=== PATIENT | female | born 1980 | race Caucasian/White ===

== ENCOUNTER 2025-02-22 07:55 | Outpatient (AMB) | payer BC, SELFPAY ==
--- OUTSIDE RECORDS SUMMARY | 2025-02-22 08:01 | XMS_ITS | Encounter Summary ---
Author Organization [facility] Address [address] [place] [address] [place] [address] Phone Care Team Providers Care Physician Assistant Primary Care Name Role Phone Sacha Pink MD Unavailable [phone] Arpit Martínez MD Unavailable Joseph King INSEAM LEVELER Unavailable [phone] Asmita Shannon MD Unavailable Sacha Pink MD Primary Care Provider + [phone] Sacha Pink MD Unavailable [phone] Encounter Details Date Type Department Care Team (Late st Contact Info) Description 07/16/2023 Procedure Pass [address] [address] Social History Tobacco Use Types Packs/Day Years Used Date Smoking Tobacco: Every Day Cigarettes 0.5 25 Passive Smoke Exposure: Never Smokeless Tobacco: Never Alcohol Use Standard Drinks/Week Comments Yes 7 (1 standard drink = 0.6 oz pur e alcohol) Child or Family Care Answer Date Record ed Do you have problems with on e of the following making it difficult for you to work, study, or receive health care? No 11/20/2021 Education Answer Date Recorded Are you interested in help w ith more adult education (for example, completing high school, GED, job training, learning the [place] language, technical skills, or developing parenting skills)? No 11/20/2021 Food Answer Date Recorded Within the past 6 months we worried whether our food would run out before we got money to buy more. Never True 022 Within the past 6 months the food we bought just didn't last and we didn't have enough money to get more. Sometimes True 10/25 Residential Stability Answer Date Recor ded What is your housing situation today? I have denise tong 11/20/2021 How many times have you move d in the past 12 months? Zero (I did not move) 11/20/2021 Paying for Meds Answer Date Recorded Do you have trouble paying for medicines? No 11/20/2021 Paying Utility Bills Answer Date Record ed Do you have trouble paying your heating or elect ricity bill? No 11/20/2021 Transportation Answer Date Recorded Has the lack of transportati on kept you from medical appointments or from getting medications? No 11/20/2021 Unemployment Answer Date Recorded Are you currently unemployed or working on a part-time or temporary basis, and looking for work? No 11/20/2021 Digital Access Answer Date Recorded No 10/20/2022 No 10/20/2022 Reliable internet access at home? Not on file 10/20/2022 Device with a working camera? 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 on file Not on file Not on file documented as of this encounter Plan of Treatment Upcoming Encounters Date Type Department Care Team (Late st Contact Info) Description 01/13/2025 Procedure Pass [facility], [facility] [address] [place] [address] 04/05/2025 2:00 PM EST Office Visit [facility] [address] [place] [address] Sacha Pink MD [address] [facility], [address] [place] [address] 09/01/2025 7:30 AM EDT Appointment [facility] [address] [place] [address] Sacha Pink MD 22 [facility], [address] [place] [address] documented as of this encounter Visit Diagnoses Not on filedocumented in this encounter Additional Health Concerns Infection Onset Date Last Indicated Resolved Time CoV-Risk 01/21/2024 01/21/2024 02/01/2024 1:2 2 AM EDT Assessment Noted Time PHQ-2 Depression Total Score: 0 02/26/20 9:00 AM EDT documented as of this encounter Care Teams Physician Assistant Primary Care Relationship Specialty Start Date End Date Sacha Pink MD [address] [place] [address], [address] [place] [address] PCP - General 04/24/17 Sacha Pink MD [address] [place] [address], [address] [place] [address] Historical LMR Provider 03/15/17 Arpit Martínez MD [address] [place] [address], [address] [address] Historical LMR Provider 03/15/17 Joseph King, ELIZA [address] [place] [address], [address] [place] [address] Historical LMR Provider 03/15/17 Asmita Shannon MD [address] [place] [address], [address] [address] [email or web address] Historical LMR Provider 03/15/17 Sacha Pink MD [address] [place] [address], [address] [place] [address] [email or web address] Insurance Assigned Provider 08/30/23 documented as of this encounter Additional Source Comments The information contained in this document represents components of the legal health record. It is not the complete legal health record.[facility]
--- OUTSIDE RECORDS SUMMARY | 2025-02-22 08:01 | XMS_ITS | Continuity of Care Document ---
Author Organization [facility] Address [address] [place] [id number] Insurance Providers Payer Plan Claims Address Claims Phone Policy Number Group Number Relation Employer Guarantor Name Guarantor Guarantor Address Guarantor Phone [facility] [address], [place] [address] tel:[phone] [id number] Self Wen Sharma [address] [place] [address] [id number] Problems Condition ICD9 code ICD10 code SNOMED code Start Date End Date S tatus Encounter for screening for other metabolic disorders Z13.228 Results No Results Allergies, adverse reactions, alerts No known allergies and adverse reactions Medications No administered medications reported Vital Signs No vital signs reported Social History No smoking Hx information available
--- OUTSIDE RECORDS SUMMARY | 2025-02-22 08:02 | XMS_ITS | Clinical Summary ---
Author Organization [facility] Address [address] [place] [address] Phone Care Team Providers Care Monomer Purification Operator Name Role Phone Sacha Pink MD Unavailable [phone] Arpit Martínez MD Unavailable Joseph King SUPERVISOR CYTOLOGY Unavailable Asmita Shannon MD Unavailable Sacha Pink MD Primary Care Provider + [phone] Sacha Pink MD Unavailable [phone] Allergies Active Allergy Reactions Criticality Noted Date Comments Macadamia Nut Hives,Itching Medium 08/15/2017 Oxycodone-Acetaminophen Nausea and/or Vomiting Low 01/21/2017 Medications b complex vitamins tablet Take 1 tablet by mouth daily. Active topiramate (TOPAMAX) 25 MG tablet Take 1 tablet (25 mg total) by mouth daily. 01/26/2019 Active magnesium 250 mg Tab Take 250 mg by mouth daily. Active atorvastatin (LIPITOR) 10 MG tablet Take 1 tablet (10 mg total) by mouth daily. 90 tablet 3 02/25/2023 Active escitalopram oxalate (LEXAPRO) 10 MG tabletIndicatio ns:Generalized anxiety disorder TAKE ONE AND ONE-HALF TABLETS BY MOUTH DAILY 135 tablet 1 02/12/2024 Active metFORMIN (GLUCOPHAGE) 500 MG tablet TAKE ONE TABLET BY MOUTH TWICE A DAY WITH MEALS 180 tablet 11/19/2024 Active Active Problems Problem Noted Date Diagnosed Date Perimenopausal symptoms 08/18/2024 Overview (08/18/2024): With history of PCOS also Assessment & Plan (08/18/2024 5:52 PM EDT): Discussed various treatment options that can help with both perimenopause as well as PCOS, opts for progestin only oral contraceptive dosing Mass of upper inner quadrant of left breast 06/27 Assessment & Plan (07/16/2023 4:06 PM EST): On questioning, she works at [employer] and thinks that a box might have fallen off a shelf. Appearance is consistent with trauma but I did recommend diagnostic imaging. She understands the wait times locally. She will call [facility] to see when diagnostic imaging can be done. If there is a long wait we could coordinate through [facility] or she could keep her screening imaging and return to see me for breast exam in about 3 weeks to see if the bruise and lump have resolved. She will consider these options and notify me of her preference. We discussed symptoms that would warrant re-evaluation. Abnormal uterine bleeding 06/03/2023 Overview (06/03/2023): Risk factors for EIN, long history of heavy. And occasionally bleeding twice a month Assessment & Plan (06/03/2023 9:49 AM EST): Recommend return for endometrial biopsy due to risk factors, she will pretreat with some ibuprofen. She does not want to consider hormonal IUD, she will consider an oral progestin, which I explained will also treat PCOS that she has had for many years. Other hyperlipidemia 02/25/2023 Menopausal symptoms 02/25/2023 Type 2 diabetes mellitus wit hout complication, without long-term current use of insulin 09/15/2022 Class 2 severe obesity due t o excess calories with serious comorbidity in adult 09/15/2022 Magnetic resonance imaging of brain abnormal Abnormally low high density lipoprotein (HDL) cholesterol with hypertriglyceridemia 11/20/2017 Atypical migraine 11/20/2017 Benign paroxysmal positional vertigo of left ear 11/20/2017 Cervical radiculitis 11/20/2017 Cervicogenic headache 11/20/2017 Dysmenorrhea 11/20/2017 Polycystic ovarian syndrome 11/20/2017 Assessment & Plan (08/18/2024 5:52 PM EDT): Has hair thinning on top of head as well as significant facial hair requires shaving, irregular menses, currently on metformin Now with some perimenopausal symptoms as well, treatment options for both discussed, she would like to try progestin only oral contraceptives; testosterone level ordered Tobacco use 11/20/2017 Generalized anxiety disorder 08/21/2017 Menorrhagia with regular cycle 08/21/2017 Hirsutism 08/19/2017 Overview (11/20/2017): With PCOS dx Assessment & Plan (08/19/2017 12:14 PM EDT): Discussed role of OCP in decreasing T and increasing SHBG, declined Discussed role of spironolactone and K issues, rx sent; check T level Continue exercise , healthy eating Immunizations Immunization Administration Dates Next Due Rho (D) Immune Globulin 11/25/2016,06/29/2014 Tdap 11/20/2021,07/22/2011 Family History Medical History Relation Comments CV disease Father PE Diabetes mellitus Father Hypertension Father Diabetes mellitus Maternal Grandmother Cancer Mother Multiple myeloma Mother Breast cancer Paternal Cousin CV disease Paternal Grandfather Alzheimer's disease Paternal Grandmother Relation Status Comments Father (Age 68) Maternal Grandfather Maternal Grandmother Mother (Age 56) Paternal Cousin Alive Paternal Grandfather Paternal Grandmother Social History Tobacco Use Types Packs/Day Years Used Date Smoking Tobacco: Every Day Cigarettes 0.5 25 Passive Smoke Exposure: Never Smokeless Tobacco: Never Tobacco Cessation:Ready to Q uit: Not Asked; Counseling Given: Not Answered Alcohol Use Standard Drinks/Week Comments Yes 7 (1 standard drink = 0.6 oz pur e alcohol) once a week Child or Family Care Answer Date Record ed Do you have problems with on e of the following making it difficult for you to work, study, or receive health care? No 11/20/2021 Education Answer Date Recorded Are you interested in more education? Not on jackeline e 12/04/2023 Are you concerned about learning? Not on file 12/04/2023 No 12/04/2023 No 12/04/2023 Food Answer Date Recorded Within the past [...] your housing situation today? 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 file Not on file Not on file Last Filed Vital Signs Vital Sign Reading Time Taken Comments Blood Pressure 104/60 08/31/2024 11:19 AM EDT Pulse 94 08/31/2024 11:19 AM EDT Temperature 36.7 C (98 F) 08/31/2024 11:19 AM EDT Respiratory Rate 16 01/21/2024 6:14 PM EDT Oxygen Saturation 97% 08/31/2024 11:19 AM EDT Inhaled Oxygen Concentration - - Weight 104 kg (229 lb 3.2 oz) 08/31/2024 11:19 A M EDT Height 170 cm (5' 6.93 ) 08/31/2024 11:19 AM EDT Body Mass Index 35.97 08/31/2024 11:19 AM EDT Plan of Treatment Upcoming Encounters Date Type Department Care Team (Late st Contact Info) Description 01/13/2025 Procedure [address] [address] 04/05/2025 2:00 PM EST Office Visit [facility] [address] [place] [address] Sacha Pink MD [address] [place] [address], [address] [place] [address] [email or web address] 09/01/2025 7:30 AM EDT Appointment [address] [address] Sacha Pink MD [address] [place] [address], [address] [place] [address] Health Maintenance Due Date Last Done Comments PNEUMOCOCCAL VACCINES (0-49 years) (1 of 2 - PCV) 1997 DIABETIC EYE EXAM 11/20/2021 URINE MICROALBUMIN/CREATININE RATIO 11/20/2021 COLOGUARD 2023 COLONOSCOPY 2023 COLORECTAL CANCER SCREENING 2023 FIT TEST 2023 FOBT 2023 SIGMOIDOSCOPY 2023 VIRTUAL COLONOSCOPY 2023 LIPID PANEL 01/29/2024 01/28/2023, 090 09/2022, 11/20/2021, Additional history exists DEPRESSION SCREENING 02/26/2024 02/25/2023 HEMOGLOBIN A1C 07/27/2024 01/28/2024, 09/0 09/2022, 01/28/2023, Additional history exists INFLUENZA VACCINE (#1) 2024 COVID-19 VACCINE ( season) 2025 BLOOD PRESSURE 03/02/2025 08/31/2024 CREATININE LEVEL 07/29/2025 07/29/2024, 08/2023, 01/28/2023, Additional history exists SMOKING Hx and SMOKELESS TOBACCO SCREENING 08/25/2025 08/25/2024 MAMMOGRAM 02/23/2026 02/24/2024, 08/28/2021 PAP SMEAR 06/03/2028 06/03/2023, 07/25, 08/19/2017 Adult Td,Tdap Booster 11/21/2031 11/20/2021, 012 HIV ONE-TIME SCREENING (18-65 YEARS) Completed 01/26/2019 HEPATITIS C SCREENING Completed 08/01/2020, 021 HEPATITIS A VACCINES Aged Out No long er eligible based on patient's age to complete this topic HIB VACCINES Aged Out No longer eligi ble based on patient's age to complete this topic MENINGOCOCCAL VACCINES (ACWY) Aged Out No longer eligible based on patient's age to complete this topic MENINGOCOCCAL VACCINES (B) Aged Out N o longer eligible based on patient's age to complete this topic Medical Devices Not on file Procedures Procedure Name Priority Date/Time Associated Diagnosis Comments COMPREHENSIVE METABOLIC PANEL Routine 07/29/2024 11:16 AM EST Lower abdominal pain BI MAMMOGRAM DIAGNOSTIC WITH TOMOSYNTHESIS WITH CAD (BILATERAL) Routine 02/24/2024 12:37 PM EDT Mass of upper inner quadrant of left breast HEMOGLOBIN A1C Routine 01/28/2024 12:25 PM EDT Type 2 diabetes mellitus without complication, without long-term current use of insulin PAP TEST Routine 06/03/2023 12:00 AM EST LIPID PANEL Routine 01/28/2023 9:09 AM EDT Type 2 diabetes mellitus without complication, without long-term current use of insulin HEPATITIS C ANTIBODY, QUALITATIVE Routine 08/01/2020 11:11 AM EST Class 2 obesity due to excess calories without serious comorbidity with body mass index (BMI) of 36.0 to 36.9 in adult from Last 3 Months or Most Recently Relevant to Health Maintenance Results * (ABNORMAL) Comprehensive metabolic panel (07/29/2024 11:16 AM EST) SODIUM 137 133 - 146 mmol/L [facility] POTASSIUM 4.2 3.3 - 5.1 mmol/L [facility] CHLORIDE 102 96 - 108 mmol/L [facility] CO2 23 21 - 35 mmol/L [facility] BUN 10 6 - 19 mg/dL [facility] CREATININE 0.70 0.5 - 1.5 mg/dL [facility] GLUCOSE 112(H) 70 - 99 mg/dL [facility] ALBUMIN 4.2 3.9 - 4.8 g/dL [facility] TOTAL PROTEIN 7.4 6.5 - 8.0 g/dL [facility] CALCIUM 9.5 8.4 - 10.3 mg/dL [facility] ALKALINE PHOSPHATASE 89 39 - 117 U/L [facility] TOTAL BILIRUBIN <0.2 0.0 - 1.2 mg/dL [facility] AST 19 0 - 37 U/L [facility] ALT 7 0 - 40 U/L [facility] GLOBULIN 3.2 1 - 4.8 g/dL [facility] EGFR 108 >59 mL/min/1.7 3m2 [facility] Comment:Estimated glomerular filtration rate calculated using the CKD-EPI refit equation. ANION GAP 16 10 - 20 mmol/L [facility] Blood 07/29/2024 11:1 6 AM EST 07/29/2024 11:25 AM EST us Shantal Ortiz SUPERVISOR CYTOLOGY LAB BLOOD ORDERABLES Sailaja mayfield Result [facility] [address] [place] [address] * BI MAMMOGRAM DIAGNOSTIC WITH TOMOSYNTHESIS WITH CAD (BILATERAL) (02/24/2024 12:37 PM EDT) Anatomical Region Laterality Modality Breast Left, Breast Right, Breast Bilateral Bila teral Mammography 02/24/2024 12:4 2 PM EDT Impressions 02/24/2024 12:52 PM EDT 1. Benign findings on the right. No mammographic evidence of malignancy in the right breast. 2. No mammographic evidence of malignancy in the left breast. BI-RADS 2 BENIGN Results and recommendations were communicated to the patient at time of examination. Narrative 02/24/2024 12:52 PM EDT BI MAMMOGRAM DIAGNOSTIC WITH TOMOSYNTHESIS WITH CAD (BILATERAL) Additional patient information: Follow-up of prior right breast probably benign findings. COMPARISON: Comparison is made with relevant prior imaging. Breast composition: There are scattered areas of fibroglandular density. FINDINGS: Right Mammogram: Previously seen asymmetry in the lateral/central right breast is stable. There are no new or suspicious findings in the right breast. Left Mammogram: No abnormal masses, suspicious calcifications, or other significant findings are identified mammographically in the left breast. There is no change since previous examination. Procedure Note Maya Scott MD - 02/24/2024 BI MAMMOGRAM DIAGNOSTIC WITH TOMOSYNTHESIS WITH CAD (BILATERAL) Additional patient information: Follow-up of prior right breast probablybenign findings. COMPARISON: Comparison is made with relevant prior imaging. Breast composition: There are scattered areas of fibroglandular density. FINDINGS: Right Mammogram: Previously seen asymmetry in the lateral/central right breast is stable.There are no new or suspicious findings in the right breast. Left Mammogram: No abnormal masses, suspicious calcifications, or other significantfindings are identified mammographically in the left breast. There is nochange since previous examination. IMPRESSION: 1. Benign findings on the right. No mammographic evidence of malignancyin the right breast. 2. No mammographic evidence of malignancy in the left breast. BI-RADS 2 BENIGN Results and recommendations were communicated to the patient at time ofexamination. us Hong Girard SUPERVISOR CYTOLOGY IMG MG EXAMS Final Res ult * (ABNORMAL) Hemoglobin A1c (01/28/2024 12:25 PM EDT) HEMOGLOBIN A1C 6.3(H) 4.3 - 5.8 % [facility] Blood 01/28/2024 12:2 5 PM EDT 01/28/2024 12:36 PM EDT us Sacha Pink MD LAB BLOOD ORDERABLES Final Result [address] [address] * Pap Test (06/03/2023 12:00 AM EST) 06/03/2023 06/04/2023 9:5 9 AM EST Narrative SEE NARRATIVE - 06/09/2023 11:17 AM EST [address] [address] Traffic Signal Mechanic: Wen Gilmore MD LAUNDERER HAND Cytology Report FINAL DIAGNOSIS A. PAP SMEAR (SUREPATH) CE: SPECIMEN ADEQUACY: Satisfactory for evaluation; transformation zone present. INTERPRETATION: NEGATIVE FOR INTRAEPITHELIAL LESION OR MALIGNANCY. Coccobacilli consistent with shift in russell Electronically Signed Out By: SCOTT Swartz(ASCP) The Pap test is a screening test primarily for squamous cancers and precursors and has associated false-negative and false-positive results. New technologies such as liquid-based preparations may decrease but will not eliminate all false-negative results. Regular sampling and follow-up of unexplained clinical signs and symptoms are recommended to minimize false negative results. PROCEDURES/ADDENDA HPV Testing (Requested) Ordered Date: 06/04/2023 A. PAP SMEAR (SUREPATH) CE: Human Papilloma Virus Test NEGATIVE for high-risk Human Papilloma Virus types 16, 18, 45 and the Other high risk probe set (Includes 31, 33, 35, 39, 51, 52, 56, 58, 59, 66, 68) Note: Testing performed by [facility] HR-HPV analysis. Clinical correlation is advised. This HPV test was performed at [facility], [address] [place] [address]. This test has been FDA approved for SurePath cervical cytology specimens. The accuracy and precision of this test for all other specimen sources has been verified in the Cytopathology Laboratory of the [facility] and has not been cleared or approved by the U.S. Food and Drug Administration. Clinical correlation is advised. CLINICAL HISTORY Date of Last Menstrual Period: 05-06-2023 Other Clinical Conditions: Screening Pap SPECIMEN SOURCE A: PAP SMEAR (SUREPATH) CE Patient Name: WEN SHARMA : 1980 (Age: 43) Sex: F Institution: [facility] Location: [facility] Date of Collection: 06/03/2023 Date of Reported: 06/09/2023 11:17 Results to: Asmita Shannon MD Asmita Shannon MD CYTOLOGY ORDERABLES Final Result SEE NARRATIVE * (ABNORMAL) Lipid panel (01/28/2023 9:09 AM EDT) HDL 49 mg/dL [facility] Comment: Interpretation <40 mg/dL: Low HDL cholesterol (major risk factor for CHD) Greater than or equal to 60 mg/dL: High HDL cholesterol ( negative risk factor for CHD) HDL - cholesterol is affected by a number of factors, e.g. smoking, excerise, hormones, sex and age. CHOLESTEROL 254(H) 0 - 240 mg/dL [facility] TRIGLYCERIDES 236(H) 30 - 160 mg/dL [facility] LDL 158(H) 50 - 129 mg/dL [facility] Comment: LDL levels in terms of risk for coronary heart disease: <100 mg/dL: Optimal 100-129 mg/dL: Near or above optimal 130-159 mg/dL: Borderline high 160-189 mg/dL: High >190 mg/dL: Very High CARDIAC RISK RATIO 5.2(H) 3.3 - 4.4 C [facility] Blood 01/28/2023 9:09 AM EDT 01/28/2023 9:15 AM EDT us Sacha Pink MD LAB BLOOD ORDERABLES Final Result [address] [address] * Hepatitis C antibody, qualitative (08/01/2020 11:11 AM EST) HCV NON-REACTIV E NON-REACTI VE [facility] Blood 08/01/2020 11:1 1 AM EST 08/01/2020 11:22 AM EST us Sacha Pink MD LAB BLOOD ORDERABLES Final Result Performing Organization Address [facility] Co de Phone Number [address] [address] from Last 3 Months or Most Recently Relevant to Health Maintenance Insurance OUT [facility] [place] [address] [place] [address] OUT [facility] PPO [employer] OUT OF STATE PPO BL[employer] [place] OUT OF STATE PPO [place] [place] OUT OF STATE PPO OUT OF [facility] PPO OUT [facility] PPO OUT [facility] P[facility] * Guarantor: Wen Sharma Account Type Relation to Patient Date of Phone Billing Address Personal/Family Self [address] [place] [address] [facility] OUT STATE PPO Care Teams Monomer Purification Operator Relationship Specialty Start Date End Date Sacha Pink MD [address] [place] [address], [address] [place] [address] PCP - General 04/24/17 Sacha Pink MD [address] [place] [address], [address] [place] [address] Historical LMR Provider 03/15/17 Arpit Martínez MD [address] [place] [address], [address] [place] [address] Historical LMR Provider 03/15/17 Joseph King CNP [address] [place] [address], [address] [place] [address] Historical LMR Provider 03/15/17 Asmita Shannon MD [address] [place] [address], [address] [place] [address] Historical LMR Provider 03/15/17 Sacha Pink MD [address] [place] [address], [address] [place] [address] [email or web address] Insurance Assigned Provider 08/30/23 Additional Source Comments The information contained in this document represents components of the legal health record. It is not the complete legal health record.[facility]
--- OUTSIDE RECORDS SUMMARY | 2025-02-22 08:02 | XMS_ITS | Encounter Summary ---
Author Organization [facility] Address [address] [place] [address] Phone Care Team Providers Care Whipper Beater Name Role Phone Sacha Pink MD Unavailable Arpit Martínez MD Unavailable Rohit Lay LINE OUT MAN Unavailable [phone] Joseph King GOLF COURSE LABORER Unavailable [phone] Jovana Enriquez LINE OUT MAN Unavailable Roxanna Santos MD Unavailable [phone] Asmita Shannon MD Unavailable Felicita Sanchez DO Unavailable Will Rizzo MD Unavailable [phone] Lambert Mackenzie MD Unavailable [phone] Tc Laureano MD Unavailable [phone] Staci Haynes RDCS Unavailable [email or web address] My Lerner MD Unavailable [phone] Sacha Pink MD Primary Care Provider [phone] Sacha Pink MD Unavailable [phone] Encounter Details Date Type Department Care Team (Late st Contact Info) Description 03/27/2021 Procedure Pass [address] [address] Social History Tobacco Use Types Packs/Day Years Used Date Smoking Tobacco: Every Day Cigarettes 0.5 25 Smokeless Tobacco: Never Alcohol Use Standard Drinks/Week Comments Yes 3 (1 standard drink = 0.6 oz pur e alcohol) Comments No Sex and Gender Information Value Date Recorded Sex Assigned at Female 09/26/2021 5:38 PM EDT Legal Sex Female 9:24 PM EDT Gender Identity Female 09/26/2021 5:38 PM EDT Sexual Orientation Straight 09/26/2021 5: 38 PM EDT 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 Not on file Not on file documented as of this encounter Plan of Treatment Upcoming Encounters Date Type Department Care Team (Late st Contact Info) Description 01/13/2025 Procedure Pass [address] [address] 04/05/2025 2:00 PM EST Office Visit [facility] Family Medicine [address] [place] [address] Sacha Pink MD [address] [place] [address], [address] [address] [email or web address] 09/01/2025 7:30 AM EDT Appointment [address] [address] Sacha Pink MD [address] [place] [address], [address] [address] [email or web address] documented as of this encounter Visit Diagnoses Not on filedocumented in this encounter Additional Health Concerns Infection Onset Date Last Indicated Resolved Time CoV-Exposed Comment:Recent close contact documented in the COVID-19 Amb Triage Form 05/21/2021 05/22/2021 06/05/2021 1:[address] CoV-Exposed Comment:Recent close contact documented in the COVID-19 Amb Triage Form 09/27/2021 09/27/2021 10/08/2021 1:23 AM E DT CoV-Risk 01/21/2024 01/21/2024 02/01/2024 1:22 AM EDT Assessment Noted Time PHQ-2 Depression Total Score: 0 01/27/20 19 9:00 AM EDT documented as of this encounter Care Teams Whipper Beater Relationship Specialty Start Date End Date Sacha Pink MD 22 [facility], [address] [place] [address] PCP - General 04/24/17 Sacha Pnik MD [address] [place] [address], [address] [place] [address] Historical LMR Provider 03/15/17 Arpit Martínez MD [address] [place] [address], [address] [address] Historical LMR Provider 03/15/17 Rohit Lay, MARIA VICTORIA [address] [place] [address] 2_[place] [address] [email or web address] Historical LMR Provider 03/15/17 06/02/21 Joseph King, ELIZA [address] [place] [address], [address] [place] [address] Historical LMR Provider 03/15/17 Jovana Enriquez LINE OUT MAN [address] [place] [address] Historical LMR Provider 03/15/17 2 Roxanna Santos MD 15 [facility], 2nd [place] [address] Historical LMR Provider 03/15/17 Asmita Shannon MD [address] [place] [address], [address] [address] Historical LMR Provider 03/15/17 Felicita Sanchez DO [address] [place] [address] Historical LMR Provider 03/15/17 2 Will Rizzo MD [address] [place] [address], [address] [place] [address] Historical LMR Provider 03/15/17 06/02/21 Lambert Mackenzie MD [address] [place] [address], [address] [place] [address] Historical LMR Provider 03/15/17 2 Tc Laureano MD [address] [place] [address], [address] [address] Historical LMR Provider 03/15/17 06/02/21 Staci Haynes, CS Historical LMR Provider 03/15/17 06/02/21 My Lerner MD [address] [place] [address], [address] [address] Historical LMR Provider 03/15/17 06/02/21 Sacha Pink MD [address] [place] [address], [address] [place] [address] [email or web address] Insurance Assigned Provider 08/30/23 documented as of this encounter Additional Source Comments The information contained in this document represents components of the legal health record. It is not the complete legal health record.[facility]
--- OUTSIDE RECORDS SUMMARY | 2025-02-22 08:02 | XMS_ITS | Encounter Summary ---
Author Organization [facility] Address [address] [place] [address] Phone Care Team Providers Care Balloon Artist Name Role Phone Sacha Pink MD Unavailable [phone] Arpit Martínez MD Unavailable Joseph King ORDER ENTRY REPRESENTATIVE Unavailable [phone] Asmita Shannon MD Unavailable Sacha Pink MD Primary Care Provider + [phone] Sacha Pink MD Unavailable [phone] Encounter Details Date Type Department Care Team (Late st Contact Info) Description 07/29/2024 Procedure Pass [facility], Ct Scan - [address] [address] Social History Tobacco Use Types Packs/Day Years [...] 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, [address] [place] [address] 09/01/2025 7:30 AM EDT Appointment [facility] 30 [place] [address] Sacha Pink MD 22 [facility], [address] [place] [address] documented as of this encounter Visit Diagnoses Not on filedocumented in this encounter Additional Health Concerns Assessment Noted Time PHQ-2 Depression Total Score: 0 02/26/20 23 9:00 AM EDT documented as of this encounter Care Teams Balloon Artist Relationship Specialty Start Date End Date Sacha Pink MD [address] [place] [address], [address] [place] [address] PCP - General 04/24/17 Sacha Pink MD [address] [place] [address], [address] [place] [address] Historical LMR Provider 03/15/17 Arpit Martínez MD [address] [place] [address], [address] [address] Historical LMR Provider 03/15/17 Joseph King CNP [address] [place] [address], [address] [place] [address] Historical LMR Provider 03/15/17 Asmita Shannon MD [address] [place] [address], [address] [place] [address] Historical LMR Provider 03/15/17 Sacha Pink MD [address] [place] [address], [address] [place] [address] [email or web address] Insurance Assigned Provider 08/30/23 documented as of this encounter Additional Source Comments The information contained in this document represents components of the legal health record. It is not the complete legal health record.[facility]
--- OUTSIDE RECORDS SUMMARY | 2025-02-22 08:02 | XMS_ITS | Encounter Summary ---
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 on file Not on file documented as of this encounter Plan of Treatment Upcoming Encounters Date Type Department Care Team (Late st Contact Info) Description 01/13/2025 Procedure Pass [facility] 30 [place] [address] 04/05/2025 2:00 PM EST Office Visit [facility] Medicine 22 [place] [address] Sacha Pink MD [address] [place] [address], [address] [place] [address] 09/01/2025 7:30 AM EDT Appointment [address] [address] Sacha Pink MD [address] [place] [address], [address] [place] [address] documented as of this encounter Visit Diagnoses [...] documented as of this encounter Care Teams Perch Mender Relationship Specialty Start Date End Date Sacha Pink MD [address] [place] [address], [address] [place] [address] PCP - General 04/24/17 Sacha Pink MD [address] [place] [address], [address] [place] [address] Historical LMR Provider 03/15/17 Arpit Martínez MD [address] [place] [address], [address] [place] [address] Historical LMR Provider 03/15/17 Joseph King CNP [address] [place] [address], [address] [place] [address] Historical LMR Provider 03/15/17 Asmita Shannon MD [address] [place] [address], [address] [address] Historical LMR Provider 03/15/17 Sacha Pink MD [address] [place] [address], [address] [place] [address] [email or web address] Insurance Assigned Provider 08/30/23 documented as of this encounter Additional Source Comments The information contained in this document represents components of the legal health record. It is not the complete legal health record.[facility]
--- OUTSIDE RECORDS SUMMARY | 2025-02-22 08:02 | XMS_ITS | Encounter Summary ---
Author Organization [facility] Address [address] [place] [address] Phone Care Team Providers Care Eyeglass Lens Cutter Name Role Phone Sacha Pink MD Unavailable [phone] Arpit Martínez MD Unavailable Joseph King BUSINESS INTELLIGENCE ETL DEVELOPER Unavailable [phone] Asmita Shannon MD Unavailable Sacha Pink MD Primary Care Provider + [phone] Sacha Pink MD Unavailable [phone] Encounter Details Date Type Department Care Team (Late st Contact Info) Description 08/04/2024 Procedure Pass [facility], Ct Scan - [address] [address] Social History Tobacco Use Types Packs/Day Years [...] 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 file Not on file documented as of this encounter Plan of Treatment Upcoming Encounters Date Type Department Care Team (Late st Contact Info) Description 01/13/2025 Procedure Pass [facility], [facility] [address] [place] [address] 04/05/2025 2:00 PM EST Office Visit [facility] Medical [facility] Family Medicine [address] [place] [address] Sacha Pink MD 22 [facility], [address] [place] [address] 09/01/2025 7:30 AM EDT Appointment [facility] 30 [place] [address] Sacha Pink MD 22 [facility], [address] [place] [address] documented as of this encounter Visit Diagnoses Not on filedocumented in this encounter Additional Health Concerns Assessment Noted Time PHQ-2 Depression Total Score: 0 02/26/20 23 9:00 AM EDT documented as of this encounter Care Teams Eyeglass Lens Cutter Relationship Specialty Start Date End Date Sacha Pink MD [address] [place] [address], [address] [place] [address] PCP - General 04/24/17 Sacha Pink MD [address] [place] [address], [address] [place] [address] Historical LMR Provider 03/15/17 Arpit Martínez MD [address] [place] [address], [address] [address] Historical LMR Provider 03/15/17 Joseph King CNP [address] [place] [address], [address] [place] [address] Historical LMR Provider 03/15/17 Asmita Shannon MD [address] [place] [address], [address] [place] [address] Historical LMR Provider 03/15/17 Sacha Pink MD [address] [place] [address], [address] [place] [address] Insurance Assigned Provider 08/30/23 documented as of this encounter Additional Source Comments The information contained in this document represents components of the legal health record. It is not the complete legal health record.[facility]
--- OUTSIDE RECORDS SUMMARY | 2025-02-22 08:02 | XMS_ITS | Encounter Summary ---
Author Organization [facility] Address [address] [place] [address] [place] [address] Phone Care Team Providers Care Plastic Tool Maker Name Role Phone Sacha Pink MD Unavailable [phone] Arpit Martínez MD Unavailable Joseph King MORTUARY OPERATIONS MANAGER Unavailable [phone] Asmita Shannon MD Unavailable Sacha Pink MD Primary Care Provider + [phone] Sacha Pink MD Unavailable [phone] Encounter Details Date Type Department Care Team (Late st Contact Info) Description 04/23/2022 Procedure Pass [address] [address] Social History Tobacco Use Types Packs/Day Years [...] high school, GED, job training, learning the Mexican language, technical skills, or developing parenting skills)? [...] basis, and looking for work? 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 Not on file Not on file documented as of this encounter Plan of Treatment Upcoming Encounters Date Type Department Care Team (Late st Contact Info) Description 01/13/2025 Procedure Pass [address] [address] 04/05/2025 2:00 PM EST Office Visit [facility] [address] [place] [address] [place] [address] Sacha Pink MD [address] [place] [address], [address] [place] [address] 09/01/2025 7:30 AM EDT Appointment [address] [address] Sacha Pink MD [address] [place] [address], [address] [place] [address] documented as of this encounter Visit Diagnoses Not on filedocumented in this encounter Additional Health Concerns Infection Onset Date Last Indicated Resolved Time CoV-Risk 01/21/2024 01/21/2024 02/01/2024 1:22 AM EDT Assessment Noted Time PHQ-2 Depression Total Score: 2 11/21/19 9:25 AM EDT documented as of this encounter Care Teams Plastic Tool Maker Relationship Specialty Start Date End Date Sacha Pink MD [address] [place] [address], [address] [address] PCP - General 04/24/17 Sacha Pink MD [address] [place] [address], [address] [address] [email or web address] Historical LMR Provider 03/15/17 Arpit Martínez MD [address] [place] [address] [email or web address] Historical LMR Provider 03/15/17 Joseph King CNP [address] [place] [address], [address] [address] [email or web address] Historical LMR Provider 03/15/17 Asmita Shannon MD [address] [place] [address] Historical LMR Provider 03/15/17 Sacha Pink MD [address] [place] [address], [address] [address] [email or web address] Insurance Assigned Provider 08/30/23 documented as of this encounter Additional Source Comments The information contained in this document represents components of the legal health record. It is not the complete legal health record.[facility]
--- OUTSIDE RECORDS SUMMARY | 2025-02-22 08:02 | XMS_ITS | Encounter Summary ---
Author Organization [facility] Address [address] [place] [address] Phone Care Team Providers Care Dealer Relationship Manager Name Role Phone Sacha Pink MD Unavailable Arpit Martínez MD Unavailable Rohit Lay GASTROENTEROLOGIST Unavailable [phone] Joseph King SEED LABORATORY ASSISTANT Unavailable [phone] Jovana Enriquez GASTROENTEROLOGIST Unavailable Roxanna Santos MD Unavailable [phone] Asmita Shannon MD Unavailable Felicita Sanchez DO Unavailable Will Rizzo MD Unavailable [phone] Lambert Mackenzie MD Unavailable [phone] Tc Laureano MD Unavailable [phone] Staci Hay[address] RDCS Unavailable [email or web address] My Lerner MD Unavailable [phone] Sacha Pink MD Primary Care Provider [phone] Sacha Pink MD Unavailable [phone] Encounter Details Date Type Department Care Team (Late st Contact Info) Description 08/01/2020 Procedure Pass [facility] [address] [place] [address] Social History Tobacco Use Types Packs/Day Years Used Date Smoking Tobacco: Every Day Cigarettes 0.5 25 Smokeless Tobacco: Never Alcohol Use Standard Drinks/Week Comments Yes 2 (1 standard drink = 0.6 oz pur e alcohol) monthly Comments No Sex and Gender Information Value Date Recorded Sex Assigned at Female 09/26/2021 5:38 PM EDT Legal Sex Female 9:24 PM EDT Gender Identity Female 09/26/2021 5:38 PM EDT Sexual Orientation Straight 09/26/2021 5: 38 PM EDT 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 Not on file Not on file documented as of this encounter Plan of Treatment Upcoming Encounters Date Type Department Care Team (Late st Contact Info) Description 01/13/2025 Procedure Pass [address] [address] 04/05/2025 2:00 PM EST Office Visit [facility] Medicine [address] [place] [address] Sacha Pink MD [address] [place] [address], [address] [address] .[employer] 09/01/2025 7:30 AM EDT Appointment [address] [address] Sacha Pink MD [address] [place] [address], [address] [address] [email or web address] documented as of this encounter Visit Diagnoses Not on filedocumented in this encounter Additional Health Concerns Infection Onset Date Last Indicated Resolved Time CoV-Risk 02/27/2021 02/27/2021 03/09/2021 1:24 AM EDT CoV-Exposed Comment:Recent close contact documented in the COVID-19 Amb Triage Form 05/21/2021 05/22/2021 06/05/2021 1:[address] CoV-Exposed Comment:Recent close contact documented in the COVID-19 Amb Triage Form 09/27/2021 09/27/202110/0810/08/2021 1:23 AM E DT CoV-Risk 01/21/2024 01/21/2024 02/01/2024 1:22 AM EDT Assessment Noted Time PHQ-2 Depression Total Score: 0 01/27/20 19 9:00 AM EDT documented as of this encounter Care Teams Dealer Relationship Manager Relationship Specialty Start Date End Date Sacha Pink MD [address] [place] [address], [address] [place] [address] PCP - General 04/24/17 Sacha Pink MD [address] [place] [address], [address] [place] [address] Historical LMR Provider 03/15/17 Arpit Martínez MD [address] [place] [address], [address] [place] [address] Historical LMR Provider 03/15/17 Rohit Lay, GASTROENTEROLOGIST [address] [place] [address] 2_[place] [address] [email or web address] Historical LMR Provider 03/15/17 06/02/21 Joseph King, SEED LABORATORY ASSISTANT [address] [place] [address], [address] [place] [address] Historical LMR Provider 03/15/17 Jovana Enriquez GASTROENTEROLOGIST [address] [place] [phone] Historical LMR Provider 03/15/17 2 Roxanna Santos MD 15 [facility], 2nd [place] [address] Historical LMR Provider 03/15/17 Asmita Shannon MD [address] [place] [address], [address] [address] Historical LMR Provider 03/15/17 ConniewasolaFelicita DO [address] [place] [address] Historical LMR Provider 03/15/17 2 Will Rizzo MD [address] [place] [address], [address] [address] Historical LMR Provider 03/15/17 06/02/21 Lambert Mackenzie MD [address] [place] [address], [address] [address] Historical LMR Provider 03/15/17 2 Tc Laureano MD [address] [place] [address], [address] [address] Historical LMR Provider 03/15/17 06/02/21 Staci Haynes, ESEQUIEL Historical LMR Provider 03/15/17 06/02/21 My Lerner MD [address] [place] [address], [address] [address] [email or web address] Historical LMR Provider 03/15/17 06/02/21 Sacha Pink MD [address] [place] [address], [address] [place] [address] [email or web address] Insurance Assigned Provider 08/30/23 documented as of this encounter Additional Source Comments The information contained in this document represents components of the legal health record. It is not the complete legal health record.[facility]
--- OUTSIDE RECORDS SUMMARY | 2025-02-22 08:02 | XMS_ITS | Encounter Summary ---
Author Organization [facility] Address [address] [facility] [address] [place] [address] Phone Care Team Providers Care Museum Exhibit Designer Name Role Phone Sacha Pink MD Unavailable [phone] Arpit Martínez MD Unavailable Joseph King BOAT ENGINES INSTALLER Unavailable [phone] Asmita Shannon MD Unavailable Sacha Pink MD Primary Care Provider + [phone] Sacha Pink MD Unavailable [phone] Encounter Details Date Type Department Care Team (Late st Contact Info) Description 08/21/2024 Nurse Triage [facility] 22 [place] [address] Shantal Ortiz, BOAT ENGINES INSTALLER [address] [facility], [address] [place] [address] [email or web address] Social History Tobacco Use Types Packs/Day Years [...] 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 Adised she should be reevaluated. documented in this encounter Plan of Treatment Upcoming Encounters Date Type Department Care Team (Late st Contact Info) Description 01/13/2025 Procedure Pass [address] [address] 04/05/2025 2:00 PM EST Office Visit [facility] [address] [place] [address] Sacha Pink MD [address] [place] [address], [address] [place] [address] 09/01/2025 7:30 AM EDT Appointment [address] [address] Sacha Pink MD [address] [place] [address], [address] [address] documented as of this encounter Visit Diagnoses Not on filedocumented in this encounter Additional Health Concerns Assessment Noted Time PHQ-2 Depression Total Score: 0 02/26/20 23 9:00 AM EDT documented as of this encounter Care Teams Museum Exhibit Designer Relationship Specialty Start Date End Date Sacha Pink MD [address] [place] [address], [address] [place] [address] PCP - General 04/24/17 Sacha Pink MD [address] [place] [address], [address] [place] [address] Historical LMR Provider 03/15/17 Arpit Martínez MD [address] [place] [address], [address] [place] [address] Historical LMR Provider 03/15/17 Joseph King CNP [address] [place] [address], [address] [place] [address] Historical LMR Provider 03/15/17 Asmita Shannon MD [address] [place] [address], [address] [place] [address] Historical LMR Provider 03/15/17 Sacha Pink MD [address] [place] [address], [address] [place] [address] [email or web address] Insurance Assigned Provider 08/30/23 documented as of this encounter Additional Source Comments The information contained in this document represents components of the legal health record. It is not the complete legal health record.[facility]
--- NOTE | 2025-02-22 08:16 | MHC.OFFVIS ---
Vital Signs 02/22/25 08:18 Height 5 ft 7 in Weight 235 lb BMI 36.8 BP 122/82 Blood Pressure Location Rt brachial Position Sitting Pulse 88 Pulse Source Pulse Oximeter Pulse Oximetry (%) 98 Oxygen Delivery Method Room Air Intake Visit Reasons: follow up - last seen 2021 Intake Note: Follow up Migraine with aura, not intractable, without status migrainosus, paresthesia of the skin last seen 2021 Facilities Maintenance Supervisor Required: No Accompanied by: Self / Same As Patient Allergies macadamia nut Allergy (Intermediate, Verified 02/22/25 08:17) Swelling oxycodone Allergy (Verified 02/22/25 08:17) Unknown Medication List - Last Reconciled 02/22/25 by Daniella Gottlieb MD ascorbic acid (vitamin C) mg PO DAILY escitalopram oxalate mg PO ferrous sulfate 27 mg PO DAILY magnesium oxide 500 mg PO DAILY metformin 500 mg PO BID topiramate 25 mg PO BID vitamin B complex 1 tab PO DAILY HPI Comments Details: 44y/o female with migraines comes for follow up after 3 years ago . she needs a note as she is unable to drive at night due to her meds .she still has tingling and numbness in distal hands when driving or when she wakes up in the morning.she denie sneck pain or shooting pains form the neck she has migraines with aura 1/week can last 2 hrs. she starts with tunnel vision , bright spots , bitemporal headache pounding, with nausea, light sensitivity . she takes advil and usually responds. she is also on topiramate 25mg bid . she has tingling in her distal UE mostly at night.In the past she tried wrist splint which did not help. she has elfego hand pain. 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 she has mild snoring. [facility] Medical History Snoring Anxiety Iron deficiency Prediabetes Obesity PCOS (polycystic ovarian syndrome) Surgical History Hx of hernia repair Family History Father Heart disease Hypertension Hypercholesteremia Mother Cancer Social History Alcohol intake: current Alcohol intake frequency: 3 or more drinks per day Alcohol type: beer Patient Tobacco Use Status: Current everyday Tobacco user Tobacco use type: Cigarette Cigarette Packs Per Day: 0.5 Physical Exam Vital Signs: Last Vital Signs Pulse 88 02/22/25 08:18 BP 122/82 02/22/25 08:18 Pulse Ox 98 02/22/25 08:18 Oxygen Delivery Method Room Air 02/22/25 08:18 BMI result Body Mass Index 36.8 Const General: cooperative, healthy appearing and comfortable Nutritional Appearance: obese Orientation/consciousness: patient oriented x3 HEENT Head: Yes normal to inspection Neuro General: patient oriented x3, gait normal, tone normal, moves all extremities, no focal motor deficits and CN's II-XI intact bilaterally Cranial nerves: Yes Nystagmus not present and Yes Normal facial strength present Gait exam (Neuro): Normal gait present Motor exam (neuro): 5/5 motor strength present throughout and Normal motor muscle tone present throughout Assessment & Plan Assessment & Plan (1) Migraine headache with aura: Code(s): G43.109 - Migraine with aura, not intractable, without status migrainosus Category: Medical (2) Tingling of upper extremity: Code(s): R20.2 - Paresthesia of skin Category: Medical Plan Continue topiramate 25mg bid advil as needed EMG UE for carpal tunnel Orders: Orders NE electromyogram (EMG) Today R20.2 - Paresthesia of skin NE nerve conduction velocity Today R20.2 - Paresthesia of skin Medications: Refilled topiramate 25 mg PO BID 60 tabs 3RF Coding Level of Care Code Est Pt Level 4 (92537) Complex EM visit Add On G2211 Diagnoses Migraine headache with aura G43.109 Tingling of upper extremity R20.2
[2025-02-22 08:18] VITALS: BP 122/82; PULSE 88; O2SAT 98; BMI 36.8
== END 2025-02-22 08:44 | disposition home or self-care (01) ==
LOC: HO.HSMS 07:56
PROVIDERS: PCP Family Medicine; Visit Provider Psychiatry & Neurology Neurology
DX: G43.109 Migraine with aura, not intractable, without status migrainosus (principal); R20.2 Paresthesia of skin
CPT/HCPCS: 99214

== ENCOUNTER 2025-03-22 12:32 | Outpatient (REF) | payer BC, SELFPAY ==
--- NOTE | 2025-03-22 15:43 | EMG_ITS ---
Chief complaint: Tingling and numbness of bilateral upper extremity Reason for referral: R20.2 paresthesia of skin Referred by: Daniella Gottlieb MD Procedure done: NCS and EMG performed on bilateral upper extremity with EMG Bilateral median and ulnar motor studies were performed. Bilateral median and ulnar mixed sensory studies were performed. Bilateral radial sensory and bilateral median and and lateral antecubital brachial sensory studies were performed. EMG needle examination was performed. Findings: Bilateral median motor distal latencies were moderately prolonged with normal amplitudes and conduction velocities. Median mixed distal latencies revealed absent response on the left and moderately slow on the right with slow conduction velocity. Impression: Moderately severe left and [id number] right median neuropathy across carpal tunnel Codin 997[address] x2 MTDD
--- OUTSIDE RECORDS SUMMARY | 2025-03-22 15:48 | XMS_ITS | Continuity of Care Document ---
Author Organization [facility] Address [address] [place] [address] Insurance Providers Payer Plan Claims Address Claims Phone Policy Number Group Number Relation Employer Guarantor Name Guarantor Guarantor Address Guarantor Phone [facility] [address], [place] [address] tel:[phone] [id number] Self Wen Sharma [address] [place] [address] [id number] Problems Condition ICD9 code ICD10 code SNOMED code Start Date End Date S tatus Encounter for screening for other metabolic disorders Z13.228 Results No Results Allergies, adverse reactions, alerts No known allergies and adverse reactions Medications No administered medications reported Vital Signs No vital signs reported Social History No smoking Hx information available
--- OUTSIDE RECORDS SUMMARY | 2025-03-22 15:48 | XMS_ITS | Encounter Summary ---
Author Organization [facility] Address [address] [place] [address] Phone Care Team Providers Care Family Coach Name Role Phone Sacha Pink MD Unavailable [phone] Arpit Martínez MD Unavailable Joseph King 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 Medicine [address] [place] [address] Sacha Pink MD [address] [place] [address], [address] [place] [address] 09/01/2025 7:30 AM EDT Appointment [address] [address] Sacha Pink MD [address] [place] [address], [address] [place] [address] documented as of this encounter Visit Diagnoses [...] documented as of this encounter Care Teams Family Coach Relationship Specialty Start Date End Date Sacha Pink MD [address] [place] [address], [address] [place] [address] PCP - General 04/24/17 Sacha Pink MD [address] [place] [address], [address] [place] [address] Historical LMR Provider 03/15/17 Arpit Martínez MD [address] [place] [address], [address] [place] [address] Historical LMR Provider 03/15/17 Joseph King CNP [address] [place] [address], [address] [place] [address] Historical LMR Provider 03/15/17 Asmita Shannon MD [address] [place] [address], [address] [address] Historical LMR Provider 03/15/17 Sacha Pink MD [address] [place] [address], [address] [place] [address] [email or web address] Insurance Assigned Provider 08/30/23 documented as of this encounter Additional Source Comments The information contained in this document represents components of the legal health record. It is not the complete legal health record.[facility]
--- OUTSIDE RECORDS SUMMARY | 2025-03-22 15:48 | XMS_ITS | Encounter Summary ---
Author Organization [facility] Address [address] [place] [address] Phone Care Team Providers Care Manufacturing Electrician Name Role Phone Sacha Pink MD Unavailable [phone] Arpit Martínez MD Unavailable Joseph King [facility]ARNISH[facility] Unavailable [phone] Asmita Shannon MD Unavailable Sacha Pink MD Primary Care Provider + [phone] Sacha Pink MD Unavailable [phone] Encounter Details Date Type Department Care Team (Late st Contact Info) Description 08/04/2024 Procedure Pass [facility], Ct Scan - [facility] [address] [place] [address] Social History Tobacco Use Types Packs/Day Years [...] 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 Family Medicine [address] [place] [address] Sacha Pink MD [address] [facility], [address] [place] [address] 09/01/2025 7:30 AM EDT Appointment [facility] [address] [place] [address] Sacha Pink MD [address] [facility], [address] [place] [address] documented as of this encounter Visit Diagnoses Not on filedocumented in this encounter Additional Health Concerns Assessment Noted Time PHQ-2 Depression Total Score: 0 02/26/20 23 9:00 AM EDT documented as of this encounter Care Teams Manufacturing Electrician Relationship Specialty Start Date End Date Sacha Pink MD [address] [place] [address], [address] [place] [address] PCP - General 04/24/17 Sacha Pink MD [address] [place] [address], [address] [place] [address] Historical LMR Provider 03/15/17 Arpit Martínez MD [address] [place] [address], [address] [address] Historical LMR Provider 03/15/17 Joseph King CNP [address] [place] [address], [address] [place] [address] Historical LMR Provider 03/15/17 Asmita Shannon MD [address] [place] [address], [address] [place] [address] Historical LMR Provider 03/15/17 Sacha Pink MD [address] [place] [address], [address] [place] [address] [email or web address] Insurance Assigned Provider 08/30/23 documented as of this encounter Additional Source Comments The information contained in this document represents components of the legal health record. It is not the complete legal health record.[facility]
--- OUTSIDE RECORDS SUMMARY | 2025-03-22 15:48 | XMS_ITS | Encounter Summary ---
Author Organization [facility] Address [address] [facility] [address] [place] [address] Phone Care Team Providers Care Breaker Unit Assembler Name Role Phone Sacha Pink MD Unavailable [phone] Arpit Martínez MD Unavailable Joseph King CVT RN Unavailable [phone] Asmita Shannon MD Unavailable Sacha Pink MD Primary Care Provider + [phone] Sacha Pink MD Unavailable [phone] Encounter Details Date Type Department Care Team (Late st Contact Info) Description 08/21/2024 Nurse Triage [facility] [address] [place] [address] Shantal Ortiz, CVT RN [address] [facility], [address] [place] [address] [email or web address] Social History Tobacco Use Types Packs/Day Years [...] 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 Not on [...] st Contact Info) Description 01/13/2025 Procedure Pass [address] [address] 04/05/2025 2:00 PM EST Office Visit [facility] Medicine [address] [place] [address] Sacha Pink MD [address] [place] [address], [address] [place] [address] 09/01/2025 7:30 AM EDT Appointment [address] [address] Sacha Pink MD [address] [place] [address], [address] [address] documented as of this encounter Visit Diagnoses Not on filedocumented in this encounter Additional Health Concerns Assessment Noted Time PHQ-2 Depression Total Score: 0 02/26/20 23 9:00 AM EDT documented as of this encounter Care Teams Breaker Unit Assembler Relationship Specialty Start Date End Date Sacha Pink MD [address] [place] [address], [address] [place] [address] PCP - General 04/24/17 Sacha Pink MD [address] [place] [address], [address] [place] [address] Historical LMR Provider 03/15/17 Arpit Martínez MD [address] [place] [address], [address] [place] [address] Historical LMR Provider 03/15/17 Joseph King CNP [address] [place] [address], [address] [place] [address] Historical LMR Provider 03/15/17 Asmita Shannon MD [address] [place] [address], [address] [place] [address] Historical LMR Provider 03/15/17 Sacha Pink MD [address] [place] [address], [address] [place] [address] [email or web address] Insurance Assigned Provider 08/30/23 documented as of this encounter Additional Source Comments The information contained in this document represents components of the legal health record. It is not the complete legal health record.[facility]
--- OUTSIDE RECORDS SUMMARY | 2025-03-22 15:48 | XMS_ITS | Clinical Summary ---
Author Organization [facility] Address [address] [place] [address] Phone Care Team Providers Care Director Manufacturing Engineering Name Role Phone Sacha Pink MD Unavailable [phone] Arpit Martínez MD Unavailable Joseph King [facility] Unavailable Asmita Shannon MD Unavailable Sacha Pink MD Primary Care Provider + [phone] Sacha Pink MD Unavailable [phone] Allergies Active Allergy Reactions Criticality Noted Date Comments Macadamia Nut Hives,Itching Medium 08/15/2017 Oxycodone-Acetaminophen Nausea and/or Vomiting Low 01/21/2017 Medications b complex vitamins tablet Take 1 tablet by mouth daily. Active topiramate (TOPAMAX) 25 MG tablet Take 1 tablet (25 mg total) by mouth daily. 9 Active magnesium 250 mg Tab Take 250 mg by mouth daily. Active atorvastatin (LIPITOR) 10 MG tablet Take 1 tablet (10 mg total) by mouth daily. 90 tablet 3 3 Active escitalopram oxalate (LEXAPRO) 10 MG tabletIndicati ons:Generalize d anxiety disorder TAKE ONE AND ONE-HALF TABLETS BY MOUTH DAILY 135 tablet 3 5 Active metFORMIN (GLUCOPHAGE) 500 MG immediate release tablet TAKE ONE TABLET BY MOUTH TWICE A DAY WITH MEALS 180 tablet 5 Active escitalopram oxalate (LEXAPRO) 10 MG tabletIndicati ons:Generalize d anxiety disorder TAKE ONE AND ONE-HALF TABLETS BY MOUTH DAILY 135 tablet 1 4 03/04/20 25 Discontinued metFORMIN (GLUCOPHAGE) 500 MG tablet TAKE ONE TABLET BY MOUTH TWICE A DAY WITH MEALS 180 tablet 5 03/18/20 25 Discontinued Active Problems Problem Noted Date Diagnosed Date [...] PM EST): On questioning, she works at [employer] and thinks that a box might have fallen off a shelf. Appearance is consistent with trauma but I did recommend diagnostic imaging. She understands the wait times locally. She will call [facility] to see when diagnostic imaging can be done. 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 on file [...] st Contact Info) Description 01/13/2025 Procedure Pass [address] [address] 04/05/2025 2:00 PM EST Office Visit [address] [address] Sacha Pink MD [address] [place] [address], [address] [address] 09/01/2025 7:30 AM EDT Appointment [address] [address] Sacha Pink MD [address] [place] [address], [address] [place] [address] Health Maintenance Due Date Last Done Comments PNEUMOCOCCAL VACCINES (0-49 years) (1 of 2 - PCV) 1997 DIABETIC EYE EXAM 11/20/2021 URINE MICROALBUMIN/CREATININE RATIO 11/20/2021 COLOGUARD 2023 COLONOSCOPY 2023 COLORECTAL CANCER SCREENING 2023 FIT TEST 2023 FOBT 2023 SIGMOIDOSCOPY 2023 VIRTUAL COLONOSCOPY 2023 LIPID PANEL 01/29/2024 01/28/2023, 0 09/2022, 11/20/2021, Additional history exists DEPRESSION SCREENING 02/26/2024 02/25/2023 HEMOGLOBIN A1C 07/27/2024 01/28/2024, 0 09/2022, 01/28/2023, Additional history exists INFLUENZA VACCINE [...] EST) SODIUM 137 133 - 146 mmol/L [facility] POTASSIUM 4.2 3.3 - 5.1 mmol/L [facility] CHLORIDE 102 96 - 108 mmol/L [facility] CO2 23 21 - 35 mmol/L [facility] BUN 10 6 - 19 mg/dL [facility] CREATININE 0.70 0.5 - 1.5 mg/dL [facility] GLUCOSE 112(H) 70 - 99 mg/dL [facility] ALBUMIN 4.2 3.9 - 4.8 g/dL [facility] TOTAL PROTEIN 7.4 6.5 - 8.0 g/dL [facility] CALCIUM 9.5 8.4 - 10.3 mg/dL [facility] ALKALINE PHOSPHATASE 89 39 - 117 U/L [facility] TOTAL BILIRUBIN <0.2 0.0 - 1.2 mg/dL [facility] AST 19 0 - 37 U/L [facility] ALT 7 0 - 40 U/L [facility] GLOBULIN 3.2 1 - 4.8 g/dL [facility] EGFR 108 >59 mL/min/1.7 3m2 [facility] Comment:Estimated glomerular filtration rate calculated using the CKD-EPI refit equation. ANION GAP 16 10 - 20 mmol/L [facility] Blood 07/29/2024 11:1 6 AM EST 07/29/2024 11:25 AM EST us Shantal Ortiz [facility] LAB BLOOD ORDERABLES Sailaja l Result [facility] [address] [place] [address] * BI MAMMOGRAM DIAGNOSTIC WITH TOMOSYNTHESIS WITH [...] patient at time ofexamination. us Hong Girard WILDLIFE CONSERVATIONIST IMG MG EXAMS Final Res ult * (ABNORMAL) Hemoglobin A1c (01/28/2024 12:25 PM EDT) HEMOGLOBIN A1C 6.3(H) 4.3 - 5.8 % [facility] Blood 01/28/2024 12:2 5 PM EDT 01/28/2024 12:36 PM EDT Sacha Pink MD LAB BLOOD ORDERABLES Final Result Performing Organization Address City/State/[facility] Co de Phone Number [address] [address] * Pap Test (06/03/2023 12:00 AM EST) [place] [address] Journeyman Pipe Fitter: Wen Gilmore MD BOX [employer]ACER Cytology Report FINAL DIAGNOSIS A. PAP SMEAR [...] 59, 66, 68) Note: Testing performed by [employer] HR-HPV analysis. Clinical correlation is advised. This HPV test was performed at [address] This test has been FDA approved for SurePath cervical cytology specimens. The accuracy and precision of this test for all other specimen sources has been verified in the Cytopathology Laboratory of the [facility] and has not been cleared or approved by the U.S. Food and Drug Administration. Clinical correlation is advised. CLINICAL HISTORY Date of Last Menstrual Period: 05-06-2023 Other Clinical Conditions: Screening Pap SPECIMEN SOURCE A: PAP SMEAR (SUREPATH) CE Patient Name: WEN SHARMA : 1980 (Age: 43) Sex: F Institution: [facility] Location: [facility] Date of Collection: 06/03/2023 Date of Reported: 06/09/2023 11:17 Results to: Asmita Shannon MD [facility] Final Diagnosis A. PAP SMEAR (SUREPATH) CE: SPECIMEN ADEQUACY: Satisfactory for evaluation; transformation zone present. INTERPRETATION: NEGATIVE FOR INTRAEPITHELIAL LESION OR MALIGNANCY. Coccobacilli consistent with shift in russell [facility] Results\Inter pretation A. PAP SMEAR (SUREPATH) CE: Human Papilloma Virus TestNEGATIVE for high-risk Human Papilloma Virus types 16, 18, 45 and the Other high risk probe set (Includes 31, 33, 35, 39, 51, 52, 56, 58, 59, 66, 68)Note: Testing performed by [facility] [facility] HR-HPV analysis. Clinical correlation is advised. This HPV test was performed at [address] [place]. This test has been FDA approved for SurePath cervical cytology specimens. The accuracy and precision of this test for all other specimen sources has been verified in the Cytopathology Laboratory of the [facility] and has not been cleared or approved by the U.S. Food and Drug Administration. Clinical correlation is advised. [facility] Conversion Type (Conversion Source) 06/03/2023 06/04/2023 9:59 AM EST us Asmita Shannon MD CYTOLOGY ORDERABLES Edited Resul t - Final Performing Organization Address [facility] Co de Phone Number [address] [address] * (ABNORMAL) Lipid panel (01/28/2023 9:09 AM EDT) HDL 49 mg/dL [facility] Comment: Interpretation <40 mg/dL: Low HDL cholesterol (major risk factor for CHD) Greater than or equal to 60 mg/dL: High HDL cholesterol ( negative risk factor for CHD) HDL - cholesterol is affected by a number of factors, e.g. smoking, excerise, hormones, sex and age. CHOLESTEROL 254(H) 0 - 240 mg/dL [facility] TRIGLYCERIDES 236(H) 30 - 160 mg/dL [facility] LDL 158(H) 50 - 129 mg/dL [facility] Comment: LDL levels in terms of risk for coronary heart disease: <100 mg/dL: Optimal 100-129 mg/dL: Near or above optimal 130-159 mg/dL: Borderline high 160-189 mg/dL: High >190 mg/dL: Very High CARDIAC RISK RATIO 5.2(H) 3.3 - 4.4 [facility] Blood 01/28/2023 9:09 AM EDT 01/28/2023 9:15 AM EDT us Sacha Pink MD LAB BLOOD ORDERABLES Final Result Performing Organization Address [facility]/ZIP Co de Phone Number [address] [address] * Hepatitis C antibody, qualitative (08/01/2020 11:11 AM EST) HCV NON-REACTIV E NON-REACTI VE [facility] Blood 08/01/2020 11:1 1 AM EST 08/01/2020 11:22 AM EST us Sacha Pink MD LAB BLOOD ORDERABLES Final Result Performing Organization Address City/State/[facility] Co de Phone Number [address] [phone] from Last 3 Months or Most Recently Relevant to Health Maintenance Insurance PPO PPO BLUE CROSS OUT OF STATE PPO BLUE CROSS OUT OF STATE PPO BLUE CROSS OUT OF STATE PPO BLUE CROSS OUT OF STATE PPO BLUE CROSS OUT OF STATE [place] [address] [place] [address] CROSS OUT OF [facility] PPO BLUE CROSS OUT OF STATE PPO Care Teams Director Manufacturing Engineering Relationship Specialty Start Date End Date Sacha Pink MD [address] [place] [address], [address] [place] [address] PCP - General 04/24/17 Sacha Pink MD [address] [place] [address], [address] [address] Historical LMR Provider 03/15/17 Arpit Martínez MD [address] [place] [address], [address] [address] Historical LMR Provider 03/15/17 Joseph King, WILDLIFE CONSERVATIONIST [address] [place] [address], [address] [place] [address] Historical LMR Provider 03/15/17 Asmita Shannon MD [address] [place] [address], [address] [address] Historical LMR Provider 03/15/17 Sacha Pink MD [address] [place] [address], [address] [place] [address] Insurance Assigned Provider 08/30/23 Additional Source Comments The information contained in this document represents components of the legal health record. It is not the complete legal health record.[facility]
--- OUTSIDE RECORDS SUMMARY | 2025-03-22 15:48 | XMS_ITS | Encounter Summary ---
Author Organization [facility] Address [address] [place] [address] [place] [address] Phone Care Team Providers Care Curtain Inspector Name Role Phone Sacha Pink MD Unavailable [phone] Arpit Martínez MD Unavailable Joseph King DATA ENTRY PROCESSOR Unavailable [phone] Asmita Shannon MD Unavailable Sacha Pink MD Primary Care Provider + [phone] Sacha Pink MD Unavailable [phone] Encounter Details Date Type Department Care Team (Late st Contact Info) Description 04/23/2022 Procedure Pass [address] [address] Social History Tobacco Use Types Packs/Day Years [...] high school, GED, job training, learning the Luxembourger language, technical skills, or developing parenting skills)? 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 Not on file Not on file documented as of this encounter Plan of Treatment Upcoming Encounters Date Type Department Care Team (Late st Contact Info) Description 01/13/2025 Procedure Pass [address] [address] 04/05/2025 2:00 PM EST Office Visit [facility] [address] [place] [address] [place] [address] Sacha Pink MD [address] [place] [address], [address] [place] [address] 09/01/2025 7:30 AM EDT Appointment [address] [address] Sacha Pink MD [address] [place] [address], [address] [place] [address] documented as of this encounter Visit Diagnoses Not on filedocumented in this encounter Additional Health Concerns Infection Onset Date Last Indicated Resolved Time CoV-Risk 01/21/2024 01/21/2024 02/01/2024 1:22 AM EDT Assessment Noted Time PHQ-2 Depression Total Score: 2 11/21/19 9:25 AM EDT documented as of this encounter Care Teams Curtain Inspector Relationship Specialty Start Date End Date Sacha Pink MD [address] [place] [address], [address] [address] PCP - General 04/24/17 Sacha Pink MD [address] [place] [address], [address] [address] [email or web address] Historical LMR Provider 03/15/17 Arpit Martínez MD [address] [place] [address] [email or web address] Historical LMR Provider 03/15/17 Joseph King CNP [address] [place] [address], [address] [address] [email or web address] Historical LMR Provider 03/15/17 Asmita Shannon MD [address] [place] [address] Historical LMR Provider 03/15/17 Sacha Pink MD [address] [place] [address], [address] [address] [email or web address] Insurance Assigned Provider 08/30/23 documented as of this encounter Additional Source Comments The information contained in this document represents components of the legal health record. It is not the complete legal health record.[facility]
--- OUTSIDE RECORDS SUMMARY | 2025-03-22 15:48 | XMS_ITS | Encounter Summary ---
Author Organization [facility] Address [address] [place] [address] [place] [address] Phone Care Team Providers Care Flight Simulator Teacher Name Role Phone Sacha Pink MD Unavailable [phone] Arpit Martínez MD Unavailable Joseph King MANAGER SIGN Unavailable [phone] Asmita Shannon MD Unavailable Sacha Pink MD Primary Care Provider + [phone] Sacha Pink MD Unavailable [phone] Encounter Details Date Type Department Care Team (Late st Contact Info) Description 07/16/2023 Procedure Pass [address] [address] Social History Tobacco Use Types Packs/Day Years [...] high school, GED, job training, learning the Estonian language, technical skills, or developing parenting skills)? 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 [address] [place] [address] Sacha Pink MD 22 [facility], [address] [place] [address] 09/01/2025 7:30 AM EDT Appointment [facility] [address] [place] [address] Sacha Pink MD 22 [facility], [address] [place] [address] documented as of this encounter Visit Diagnoses Not on filedocumented in this encounter Additional Health Concerns Infection Onset Date Last Indicated Resolved Time CoV-Risk 01/21/2024 01/21/2024 02/01/2024 1:2 2 AM EDT Assessment Noted Time PHQ-2 Depression Total Score: 0 02/26/20 9:00 AM EDT documented as of this encounter Care Teams Flight Simulator Teacher Relationship Specialty Start Date End Date Sacha Pink MD [address] [place] [address], [address] [place] [address] PCP - General 04/24/17 Sacha Pink MD [address] [place] [address], [address] [place] [address] Historical LMR Provider 03/15/17 Arpit Martínez MD [address] [place] [address], [address] [address] Historical LMR Provider 03/15/17 Joseph King, ELIZA [address] [place] [address], [address] [place] [address] Historical LMR Provider 03/15/17 Asmita Shannon MD [address] [place] [address], [address] [address] [email or web address] Historical LMR Provider 03/15/17 Sacha Pink MD [address] [place] [address], [address] [place] [address] [email or web address] Insurance Assigned Provider 08/30/23 documented as of this encounter Additional Source Comments The information contained in this document represents components of the legal health record. It is not the complete legal health record.[facility]
--- OUTSIDE RECORDS SUMMARY | 2025-03-22 15:48 | XMS_ITS | Encounter Summary ---
Author Organization [facility] Address [address] [place] [address] Phone Care Team Providers Care Data Collection Specialist Name Role Phone Sacha Pink MD Unavailable [phone] Arpit Martínez MD Unavailable Joseph King [facility] Unavailable [phone] Asmita Shannon MD Unavailable Sacha Pink MD Primary Care Provider + [phone] Sacha Pink MD Unavailable [phone] Reason for Visit * Reason Comments Medication Refill Encounter Details Date Type Department Care Team (Late st Contact Info) Description 03/17/2025 Refill [facility] [address] [place] [address] Tarik Mims PA-C, TOBIAS [address] [place] [address] [email or web address] Medication Refill Social History Tobacco Use Types Packs/Day Years [...] 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 Specifics below. > Labs due: Please remind patient. > Orders needed: Click OPA and Accept to open SmartSet. A1c - Needs order * Lipid panel - Needs order * Urine Microalbumin - Needs order * Visit Info Last visit: 08/25/2024 Shantal Ortiz CNP - Family Medicine [facility] > Requested f/u: Return if symptoms worsen or fail to improve. Upcoming visit: 04/05/2025 Sacha Pink MD - Family Medicine [facility] ACTIONS TAKEN BY Eros MontoyaMAC - Labs needed - Teed up orders and/or reminded pt. - Routed to pool to remind pt labs are due A1C, Lipid Panel and Urine Microalbumin (needs order) Diabetes Rx Protocol (on Diabetes Registry) - metformin HCl Criteria not met; renew for up to 3 months. Visit in the past 14 months: Yes Clinical criteria: - BMP within past year: Yes - A1c within past 6 months: No - Lipid panel within past year: No (LDL 158 on 01/28/2023) - Urine microalbumin within past year or on CLAUDIA/ARB: No Lab Results Component Value Date SODIUM 137 07/29/2024 POTASSIUM 4.2 07/29/2024 CHLORIDE 102 07/29/2024 CO2 23 07/29/2024 BUN 10 07/29/2024 CREATININE 0.70 07/29/2024 EGFR 108 07/29/2024 Lab Results Component Value Date HEMOGLOBIN A1C 6.3 (H) 01/28/2024 Lab Results Component Value Date LDL 158 (H) 01/28/2023 HDL 49 01/28/2023 CARDIAC RISK RATIO 5.2 (H) 01/28/2023 TRIGLYCERIDES 236 (H) 01/28/2023 CHOLESTEROL 254 (H) 01/28/2023 Health Maintenance Labs Due / Due Soon Topic Date Due URINE MICROALBUMIN/CREATININE RATIO Never done LIPID PANEL 01/29/2024 HEMOGLOBIN A1C 07/27/2024 documented in this encounter Plan of Treatment Upcoming Encounters Date Type Department Care Team (Late st Contact Info) Description 01/13/2025 Procedure Pass [facility], Mammography- Main [address] [address] 04/05/2025 2:00 PM EST Office Visit [facility] Medicine [address] [place] [address] Sacha Pink MD [address] [place] [address], [address] [place] [address] [email or web address] 09/01/2025 7:30 AM EDT Appointment [address] [address] Sacha Pink MD [address] [place] [address], [address] [place] [address] documented as of this encounter Visit Diagnoses Not on filedocumented in this encounter Additional Health Concerns Assessment Noted Time PHQ-2 Depression Total Score: 0 02/26/20 23 9:00 AM EDT documented as of this encounter Care Teams Data Collection Specialist Relationship Specialty Start Date End Date Sacha Pink MD [address] [place] [address], [address] [place] [address] PCP - General 04/24/17 Sacha Pink MD [address] [place] [address], [address] [place] [address] Historical LMR Provider 03/15/17 Arpit Martínez MD [address] [place] [address], [address] [place] [address] Historical LMR Provider 03/15/17 Joseph King, PERSONNEL RESEARCH SCIENTIST [address] [place] [address], [address] [place] [address] Historical LMR Provider 03/15/17 Asmita Shannon MD [address] [place] [address], [address] [place] [address] Historical LMR Provider 03/15/17 Sacha Pink MD [address] [place] [address], [address] [place] [address] Insurance Assigned Provider 08/30/23 documented as of this encounter Additional Source Comments The information contained in this document represents components of the legal health record. It is not the complete legal health record.[facility]
--- OUTSIDE RECORDS SUMMARY | 2025-03-22 15:48 | XMS_ITS | Encounter Summary ---
Author Organization [facility] Address [address] [place] [address] Phone Care Team Providers Care Svp Operations Name Role Phone Sacha Pink MD Unavailable [phone] Arpit Martínez MD Unavailable Joseph King STAFF DEVELOPMENT NURSE Unavailable [phone] Asmita Shannon MD Unavailable Sacha Pink MD Primary Care Provider + [phone] Sacha Pink MD Unavailable [phone] Encounter Details Date Type Department Care Team (Late st Contact Info) Description 07/29/2024 Procedure Pass [facility], [facility] [address] [place] [address] Social History Tobacco Use Types Packs/Day Years [...] 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 on file Not on file documented as of this encounter Plan of Treatment Upcoming Encounters Date Type Department Care Team (Late st Contact Info) Description 01/13/2025 Procedure Pass [facility], [facility] [address] [place] [address] 04/05/2025 2:00 PM EST Office Visit [facility] Family Medicine [address] [place] [address] Sacha Pink MD 22 [facility], [address] [place] [address] 09/01/2025 7:30 AM EDT Appointment [facility] [address] [place] [address] Sacha Pink MD 22 [facility], [address] [place] [address] documented as of this encounter Visit Diagnoses Not on filedocumented in this encounter Additional Health Concerns Assessment Noted Time PHQ-2 Depression Total Score: 0 02/26/20 23 9:00 AM EDT documented as of this encounter Care Teams Svp Operations Relationship Specialty Start Date End Date Sacha Pink MD [address] [place] [address], [address] [place] [address] PCP - General 04/24/17 Sacha Pink MD [address] [place] [address], [address] [place] [address] Historical LMR Provider 03/15/17 Arpit Martínez MD [address] [place] [address], [address] [address] Historical LMR Provider 03/15/17 Joseph King CNP [address] [place] [address], [address] [place] [address] Historical LMR Provider 03/15/17 Asmita Shannon MD [address] [place] [address], [address] [place] [address] Historical LMR Provider 03/15/17 Sacha Pink MD [address] [place] [address], [address] [place] [address] [email or web address] Insurance Assigned Provider 08/30/23 documented as of this encounter Additional Source Comments The information contained in this document represents components of the legal health record. It is not the complete legal health record.[facility]
--- OUTSIDE RECORDS SUMMARY | 2025-03-22 15:48 | XMS_ITS | Encounter Summary ---
Author Organization [facility] Address [address] [place] [address] Phone Care Team Providers Care Stretching Press Operator Name Role Phone Sacha Pink MD Unavailable [phone] Arpit Martínez MD Unavailable Rohit Lay BALLER TENDER Unavailable Joseph King WATER TREATMENT OPERATOR Unavailable [phone] Jovana Enriquez BALLER TENDER Unavailable Roxanna Santos MD Unavailable [phone] Asmita Shannon MD Unavailable Felicita Sanchez DO Unavailable Will Rizzo MD Unavailable [phone] Lambert Mackenzie MD Unavailable [phone] Tc Laureano MD Unavailable [phone] Unavailable [email or web address] My Lerner MD Unavailable [phone] Sacha Pink MD Primary Care Provider [phone] Sacha Pink MD Unavailable [phone] Encounter Details Date Type Department Care Team (Late st Contact Info) Description 08/01/2020 Procedure Pass [facility] 30 [place] [address] Social History Tobacco Use Types Packs/Day Years [...] 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 on file Not on file documented as of this encounter Plan of Treatment Upcoming Encounters Date Type Department Care Team (Late st Contact Info) Description 01/13/2025 Procedure Pass [address] [address] 04/05/2025 2:00 PM EST Office Visit [facility] Medicine [address] [place] [address] Sacha Pink MD [address] [place] [address], [address] [address] [email or web address] 09/01/2025 7:30 AM EDT Appointment [address] [address] Sacha Pink MD [address] [place] [address], [address] [address] [email or web address] documented as of this encounter Visit Diagnoses [...] documented as of this encounter Care Teams Stretching Press Operator Relationship Specialty Start Date End Date Sacha Pink MD [address] [place] [address], [address] [place] [address] PCP - General 04/24/17 Sacha Pink MD [address] [place] [address], [address] [place] [address] Historical LMR Provider 03/15/17 Arpit Martínez MD [address] [place] [address], [address] [place] [address] Historical LMR Provider 03/15/17 Rohit Lay, BALLER TENDER [address] [place] [address] 2_[place] [address] [email or web address] Historical LMR Provider 03/15/17 06/02/21 Joseph King, WATER TREATMENT OPERATOR [address] [place] [address], [address] [place] [address] Historical LMR Provider 03/15/17 Jovana Enriquez BALLER TENDER [address] [place] [phone] Historical LMR Provider 03/15/17 2 Roxanna Santos MD [address] [facility], 2nd [place] [address] Historical LMR Provider 03/15/17 Asmita Shannon MD [address] [place] [address], [address] [address] Historical LMR Provider 03/15/17 Connieshawnee on delawareFelicita DO [address] [place] [address] Historical LMR Provider 03/15/17 2 Will Rizzo MD [address] [place] [address], [address] [address] Historical LMR Provider 03/15/17 06/02/21 Lambert Mackenzie MD [address] [place] [address], [address] [address] Historical LMR Provider 03/15/17 2 Tc Laureano MD [address] [place] [address], [address] [address] Historical LMR Provider 03/15/17 06/02/21 Staci Haynes, ESEQUIEL Historical LMR Provider 03/15/17 06/02/21 My Lerner MD [address] [place] [address], [address] [address] [email or web address] Historical LMR Provider 03/15/17 06/02/21 Sacha Pink MD [address] [place] [address], [address] [place] [address] [email or web address] Insurance Assigned Provider 08/30/23 documented as of this encounter Additional Source Comments The information contained in this document represents components of the legal health record. It is not the complete legal health record.[facility]
--- OUTSIDE RECORDS SUMMARY | 2025-03-22 15:48 | XMS_ITS | Encounter Summary ---
Author Organization [facility] Address [address] [place] [address] Phone Care Team Providers Care Maintenance Electrician Name Role Phone Sacha Pink MD Unavailable Arpit Martínez MD Unavailable Rohit Lay STUDENT NURSE Unavailable Joseph King FARMWORKER POULTRY Unavailable [phone] Jovana Enriquez STUDENT NURSE Unavailable Roxanna Santos MD Unavailable [phone] Asmita Shannon MD Unavailable Felicita Sanchez DO Unavailable Will Rizzo MD Unavailable [phone] Lambert Mackenzie MD Unavailable [phone] Tc Laureano MD Unavailable [phone] Unavailable [email or web address] My Lerner MD Unavailable [phone] Sacha Pink MD Primary Care Provider [phone] Sacha Pink MD Unavailable [phone] Encounter Details Date Type Department Care Team (Late st Contact Info) Description 03/27/2021 Procedure Pass [address] [address] Social History Tobacco Use Types Packs/Day Years [...] 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 on file Not on file documented as of this encounter Plan of Treatment Upcoming Encounters Date Type Department Care Team (Late st Contact Info) Description 01/13/2025 Procedure Pass [address] [address] 04/05/2025 2:00 PM EST Office Visit [facility] Family Medicine [address] [place] [address] Sacha Pink MD [address] [place] [address], [address] [address] [email or web address] 09/01/2025 7:30 AM EDT Appointment [address] [address] Sacha Pink MD [address] [place] [address], [address] [address] [email or web address] documented as of this encounter Visit Diagnoses [...] documented as of this encounter Care Teams Maintenance Electrician Relationship Specialty Start Date End Date Sacha Pink MD [address] [facility], [address] [place] [address] PCP - General 04/24/17 Sacha Pink MD [address] [place] [address], [address] [place] [address] Historical LMR Provider 03/15/17 Arpit Martínez MD [address] [place] [address], [address] [address] Historical LMR Provider 03/15/17 Rohit Lay, MARIA VICTORIA [address] [place] [address] 2_[place] [address] [email or web address] Historical LMR Provider 03/15/17 06/02/21 Joseph King, ELIZA [address] [place] [address], [address] [place] [address] Historical LMR Provider 03/15/17 Jovana Enriquez STUDENT NURSE [address] [place] [phone] Historical LMR Provider 03/15/17 2 Roxanna Santos MD [address] [facility], 2nd [place] [address] Historical LMR Provider 03/15/17 Asmita Shannon MD [address] [place] [address], [address] [address] Historical LMR Provider 03/15/17 Felicita Sanchez DO [address] [place] [address] Historical LMR Provider 03/15/17 2 Will Rizzo MD [address] [place] [address], [address] [place] [address] Historical LMR Provider 03/15/17 06/02/21 Lambert Mackenzie MD [address] [place] [address], [address] [place] [address] Historical LMR Provider 03/15/17 2 Tc Laureano MD [address] [place] [address], [address] [address] Historical LMR Provider 03/15/17 06/02/21 Staci Haynes, CS Historical LMR Provider 03/15/17 06/02/21 My Lerner MD [address] [place] [address], [address] [address] Historical LMR Provider 03/15/17 06/02/21 Sacha Pink MD [address] [place] [address], [address] [place] [address] [email or web address] Insurance Assigned Provider 08/30/23 documented as of this encounter Additional Source Comments The information contained in this document represents components of the legal health record. It is not the complete legal health record.[facility]
== END 2025-03-22 12:33 | disposition home or self-care (01) ==
LOC: HO.NEURO 12:32
PROVIDERS: PCP Family Medicine; Visit Provider Psychiatry & Neurology Neurology
DX: R20.2 Paresthesia of skin (principal); R20.0 Anesthesia of skin
CPT/HCPCS: 95886; 95913

== ENCOUNTER → 2025-03-22 15:43 | Outpatient (BNV) | payer BC, SELFPAY | PROVIDERS: PCP Family Medicine; Visit Provider Psychiatry & Neurology Neurology | DX: G56.03 Carpal tunnel syndrome, bilateral upper limbs (principal) | CPT/HCPCS: 95886; 95912 ==